=== PATIENT | female | born 2000 | race Caucasian/White ===

== ENCOUNTER 2021-11-13 08:53 | Outpatient (CLI) | payer BC, SELFPAY | END 2021-11-13 08:54 | disposition home or self-care (01) | LOC: RAD 09:01 | PROVIDERS: Visit Provider Family Medicine | DX: M51.26 Other intervertebral disc displacement, lumbar region (principal); M54.16 Radiculopathy, lumbar region | CPT/HCPCS: 62323; J0702; Q9966 ==